=== PATIENT | male | born 1960 | race Caucasian/White ===

== ENCOUNTER 2023-07-09 19:26 | Emergency (ER) | payer BC, SELFPAY ==
[2023-07-09 19:27] VITALS: BP 165/90; PULSE 130; RESP 18; TEMP 36.7; O2SAT 100; BMI 22.4
[2023-07-09 19:54] VITALS: PULSE 101; O2SAT 94
--- NOTE | 2023-07-09 20:06 | EX.ED.UPPERE ---
HPI History of Present Illness HPI Narrative: 62-year-old male no seen past medical history. Chainsaw injury to the back of his left forearm and wrist. Occurred about an hour ago. Chief Complaint: Laceration Informant: patient Occured/Mechanism Mechanism/Context: Yes injury Onset/Context/Timing Onset: Today and Hours Context: Sudden Onset Timing: Continuous Quality of Pain: Sharp and Stabbing Current Severity: Severe Maximum Severity: Severe Associated Symptoms Associated Symptoms: Positive for Weakness and Loss of Funtion; Negative for Parasthesia Narrative Narrative: 62-year-old male no seen past medical history was chain sawing when the chainsaw slipped and cut the dorsum of his left wrist, forearm and proximal hand. Tetanus is greater than 10 years ago. No other injuries. He is not on any medications or blood thinners. Denies any allergies. Tetanus Immunization: >10 years Prior similar symptoms: No Recent Illness/Hospitalization: No PFSH PFSH Medical History no medical history no medical history Home Medications oxycodone-acetaminophen 5 mg-325 mg tablet 1 - 2 tab PO Q4H PRN PRN Pain #12 tabs 11/03/17 [Rx Last Taken Unknown] Allergy/AdvReac Type Severity Reaction Status Date / Time No Known Allergies Allergy Verified 07/09/23 19:29 Social History Smoking Status: Current every day smoker tobacco type: cigarettes ROS ROS ED ROS Narrative No recent illness. Review of Systems ROS Unobtainable: Denies due to encephalopathy Constitutional Constitutional ED: Denies chills or fever(s) Eyes Eyes: Denies blurry vision ENT ENT ED: Denies ear pain Cardiovascular Cardiovascular: Denies chest pain Respiratory/Chest Respiratory/Chest: Denies cough or dyspnea Gastrointestinal Gastrointestinal: Denies abdominal pain Genitourinary Genitourinary ED: Denies dysuria Musculoskeletal Musculoskeletal: Denies back pain Integumentary Denies abscess Neurologic Neurologic: Denies headache(s) Psychiatric Psychiatric: Denies anxiety Endocrine Endocrinology: Denies cold intolerance Hematologic/Lymphatic Hematologic/Lymphatic: Denies easy bleeding Allergic/Immunologic Allergic/Immunologic ED: Denies mouth swelling EXAM Physical Exam Narrative Exam Narrative: 62-year-old male vital signs stable afebrile. HEENT exam unremarkable lungs clear. Heart regular rhythm no murmur rate about 100 chest wall and ribs nontender. Abdomen soft nontender. Lungs are clear to auscultation bilaterally. Right upper both lower extremities are unremarkable his left upper extremity at the distal forearm left wrist and proximal aspect of the dorsum of the left hand all have a significant chainsaw laceration involving the extensor tendons. He cannot extend his wrist. He does have touch sensation to the digits of his fingers. He does have cap refill to the digits of his finger and he has a strong radial pulse. Neurologically he is awake and alert. GCS of 15. Const Vital Signs: 07/09/23 19:27 07/09/23 19:54 Temperature 98.0 F Temperature Source Temporal Pulse Rate 130 H 101 H Respiratory Rate 18 Blood Pressure 165/90 H Blood Pressure Mean 115 Pulse Ox 100 94 Oxygen Delivery Method Room Air Positive well nourished and well developed; Negative for obese, cachectic or contractures General Appearance ED: well developed; Negative for cachectic, contractures, cyanotic, diaphoretic or NAD Nutritional Appearance: Negative for cachectic or obese HEENT Reports moist mucous membranes normocephalic and atraumatic; Negative for trauma or tenderness Eyes PERRL and EOMs intact bilaterally General Eye ED: Negative for other Neck full ROM and supple General: Negative for tenderness Lymph Lymphatic: Negative for other Chest Wall inspection of chest normal and palpation of chest normal Chest: Negative for other Resp normal respiratory effort and clear to auscultation bilaterally Effort and Inspection: Negative for pain with movement Auscultation: Negative for rales, rhonchi or wheezes Cardio regular rate, regular rhythm, S1 normal heart sound, S2 normal heart sound and no murmurs GI non-tender, non-distended and no masses Auscultation: normoactive bowel sounds Palpation: soft; Negative for tender or guarding Back/Spine no CVA tenderness Extremity normal to inspection and full ROM Extremity Narrative: Except dorsum of his distal left forearm, dorsal wrist and dorsal hand proximally is a significant chainsaw laceration. Following the skin and subcu tissue and extensor tendons. There is oozing of blood consistent with venous bleeding no pulsatile bleeding. He is unable to extend his wrist. He has normal cap refill and touch sensation to his hand. There is no palmar side injury. General Extremety ED: Negative for edema General Extremity: Negative for edema Neuro oriented x3, CN's II-XII intact bilaterally, No moves all extremities and No no focal motor deficits Sensorium / Orientation: alert, oriented to person, oriented to place and oriented to time; Negative for orientation impaired Motor Exam: Negative for strength 5/5 throughout Psych mental status grossly normal Attitude: No agitated Mood & Affect: Negative for depressed, anxious or tearful Skin General Skin Exam: Negative for petechiae Lesions: no lesions Rashes: no rashes Trauma: laceration; Negative for no lacerations or abrasions MDM MDM MDM Narrative Medical decision making narrative: 62-year-old male 1 hour ago had a significant chainsaw injury to the dorsum of his left, wrist and dorsum of the hand. He is right-hand dominant. X-ray to be obtained. He has been given morphine for pain. Zofran. Rocephin IV antibiotic. Tetanus will be updated. I already spoke in [facility] though excepted in transfer room [facility] which ever is faster. Patient doing well at 8:40 PM. His distal wrist and hand laceration has been cleaned and dressed. We are awaiting transfer him to go to [facility] for hand specialist evaluation. His pain is improved with the morphine. His tetanus has been updated. The Rocephin will be hung. Patient will be given a second dose of morphine. He is clinically much improved. 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 No noted obvious foreign body. No acute bony injury from the trauma that I can see. Discharge Plan Triage Chief Complaint: Laceration ED Provider: Jose Martin [place] Dx/Rx/DC Orders Clinical Impression: Contact with chainsaw as cause of accidental injury, Laceration of left wrist Prescriptions: No Action oxycodone-acetaminophen 1 TABLET tablet 1 - 2 tab PO Q4H PRN PRN (Reason: Pain) Qty: 12 0RF Primary Care Provider: Zita Jaimes Referrals: Zita Jaimes DO [Primary Care Provider] - Disposition Disposition: Acute Care Hospital
[2023-07-09] MEDS: morphine 8 MG/ML Syringe IV (20:11)
--- NOTE | 2023-07-09 20:15 | RAD_ITS ---
INDICATION: Trauma, so accident with wrist laceration EXAMINATION/TECHNIQUE: X-RAY - LEFT XR Wrist Min 3 Views 3 VIEWS COMPARISON: Left hand series same date FINDINGS: SOFT TISSUES: Soft tissue irregularity over the lateral aspect of the wrist. No gas formations. No radiopaque foreign body. BONES/JOINTS: Focal defect in the cortex of the distal radial metaphysis laterally. Joint spaces anatomically aligned with degenerative changes. No sclerotic or destructive changes observed. RAD/Wrist min 3 Views IMPRESSION: Probable acute cortical avulsion fracture at the lateral aspect of the distal radial metaphysis. Electronically Signed: Ignacio Mckeon MD at 20:59 EDT ,
[2023-07-09] MEDS: Ondansetron 4 MG/2 ML Vial IV (20:16)
--- NOTE | 2023-07-09 20:19 | RAD_ITS ---
INDICATION: Trauma, laceration to wrist and hand EXAMINATION/TECHNIQUE: X-RAY - LEFT XR Hand Min 3 Views 3 VIEWS COMPARISON: None. FINDINGS: SOFT TISSUES: No soft tissue swelling or gas. No radiopaque foreign body. BONES/JOINTS: Focal cortical defect at the distal portion of the radial metaphysis laterally. Cortical irregularity at the distal portion of the fourth proximal phalanx. Joint spaces anatomically aligned with degenerative narrowing at the proximal and distal IP joints, first carpal metacarpal junction and junction of the navicular with the greater and lesser multangular. No sclerotic or destructive changes observed. RAD/Hand Min 3 Views IMPRESSION: Probable acute focal cortical avulsion fracture at the distal aspect of the radius laterally. Defect in the distal portion of the fourth proximal phalanx of uncertain chronicity but acute fracture cannot be excluded. Degenerative changes. Electronically Signed: Ignacio Mckeon MD at 20:56 EDT ,
[2023-07-09 20:25] VITALS: BP 109/77; PULSE 81; RESP 16; O2SAT 94
[2023-07-09] MEDS: Ceftriaxone 1 GM/50 ML BAG IV (20:31)
[2023-07-09] MEDS: Diphth,Pertuss(Acell),Tet Vac 0.5 ML Vial IM (20:38)
[2023-07-09] MEDS: Morphine 4 MG/ML Syringe 6 MG IV (20:43)
[2023-07-09 20:46] VITALS: BP 124/87; PULSE 87; RESP 16; O2SAT 97
== END 2023-07-09 22:30 | disposition short-term general hospital (02) ==
LOC: ED 20:32
PROVIDERS: Emergency Provider Emergency Medicine; PCP Internal Medicine; Visit Provider Emergency Medicine
DX: S56.522A Laceration of other extensor muscle, fascia and tendon at forearm level, left arm, initial encounter (principal); S61.512A Laceration without foreign body of left wrist, initial encounter; Z23 Encounter for immunization; W29.3XXA Contact with powered garden and outdoor hand tools and machinery, initial encounter; F17.210 Nicotine dependence, cigarettes, uncomplicated
CPT/HCPCS: 73110; 73130; 90715; 96365; 96375; 96376; 99283; J7050; A4216; J2405